=== PATIENT | male | born 1970 | race Caucasian/White ===

== ENCOUNTER 2018-10-30 10:50 | Emergency (ER) | payer SELFPAY ==
[~2018-10-30] VITALS: Ht 182.9 cm; Wt 79.4 kg
[2018-10-30 12:30] VITALS: BP 127/82
[2018-10-30] MEDS ORDERED: KETOROLAC TROMETH 60MG/2ML VIAL IM ONE (12:30)
[2018-10-30] MEDS ORDERED: TETANUS-DIPTH-ACEL PERTUSSIS 0.5ML SYRG IM ONE (13:00)
== END 2018-10-30 13:55 | disposition home or self-care (01) ==
LOC: ER 10:50
DX: M25.521 Pain in right elbow (principal); F12.10 Cannabis abuse, uncomplicated; M25.511 Pain in right shoulder
CPT/HCPCS: 73080; 90471; 90715; 96372; 99283; J1885

== ENCOUNTER 2018-11-05 12:12 | Emergency (ER) | payer SELFPAY ==
[~2018-11-05] VITALS: Ht 182.9 cm; Wt 79.4 kg
[2018-11-05 12:56] VITALS: BP 101/69
[2018-11-05] MEDS ORDERED: KETOROLAC TROMETH 60MG/2ML VIAL IM ONE (13:15)
[2018-11-05] MEDS ORDERED: diphenhdrAMINE HCL 25 MG CAP PO ONE (13:15)
[2018-11-05] MEDS ORDERED: methylPREDNISolone SOD SUCC 125 MG/2 ML VL IM ONE (13:15)
== END 2018-11-05 14:27 | disposition home or self-care (01) ==
LOC: ER 12:15
DX: M25.511 Pain in right shoulder (principal); F12.10 Cannabis abuse, uncomplicated
CPT/HCPCS: 73030; 96372; 99283; J1885; J2930

== ENCOUNTER → 2018-11-30 | Outpatient (CLI) | payer SELFPAY ==
[2018-11-30 13:40] LABS: Basophils # (auto) 0.1 uL; Basophils % (auto) 1.1 % (0.0-2.0); Eosinophils # (auto) 0.2 uL; Eosinophils % (auto) 2.5 % (0.0-7.0); Hematocrit 45.7 % (41.0-53.0); Lymphocytes # (auto) 1.8 uL; Mean Corpuscular Hemoglobin 32.2 pg (28.0-32.0); Mean Corpuscular Hgb Conc. 35.1 g/dL (32.0-36.0); Mean Corpuscular Volume 91.8 fL (80.0-100.0); Monocytes # (auto) 0.5 uL; Monocytes % (auto) 5.6 % (0.0-12.0); Neutrophils # (auto) 6.4 uL; Neutrophils % (auto) 70.8 % (37.0-80.0); Nucleated Red Blood Cells % 0.2 %; Platelet Count (auto) 282 10^3/uL (140-450); Red Blood Cells 4.98 10^6/uL (4.5-5.90); Red Cell Distribution Width 13.6 % (11.8-14.3)
[2018-11-30 14:07] LABS: BUN/Creatinine Ratio 9.6; Potassium 4.3 mmol/L (3.5-5.1)
[2018-11-30 14:10] LABS: Bilirubin, Total 0.7 mg/dL (0.2-1.0); Total Protein 7.3 g/dL (6.4-8.2)
== END | disposition home or self-care (01) ==
LOC: LAB 12:34
DX: R10.32 Left lower quadrant pain (principal)
CPT/HCPCS: 36415; 80053; 85025